=== PATIENT | male | born 1980 | race Two or more races ===

== ENCOUNTER 2024-09-25 14:17 | Emergency (ER) | payer OTHER ==
[~2024-09-25] VITALS: Ht 175.3 cm; Wt 105.0 kg
[~2024-09-25 14:17] MED LIST: ASPI-543 PO
--- NOTE | 2024-09-25 15:14 | ED.PDOC ---
Eye-HPI HPI Comments A 44 YEAR OLD MALE PRESENTS TO THE ED WITH COMPLAINT OF LEFT LOWER DENTAL PAIN AND SORE THROAT. PATIENT STATES HE HAS BEEN EXPERIENCING LEFT LOWER DENTAL PAIN OFF AND ON FOR THE PAST 3 MONTHS AND A SORE THROAT FOR THE PAST 3 WEEKS. PATIENT REPORTS HIS DENTAL PAIN HAS BEEN CAUSING HIS JAW TO HURT. PATIENT DENIES FEVER, CHILLS, SHORTNESS OF BREATH, CHEST PAIN, ABDOMINAL PAIN, NAUSEA, VOMITING, HEADACHE, OR OTHER COMPLAINTS. NO OTHER SYMPTOMS OR MODIFYING FACTORS AT THIS TIME. PATIENT IS ALERT, ORIENTED X 4, AND HAS STEADY GAIT. Chief Complaint: Jaw Pain Time Seen by MD: 14:40 Reviewed Notes: Nurses Notes, Medications, Allergies Allergies: Coded Allergies: NO KNOWN ALLERGIES (Unverified , 10/30/23) Home Meds Reported Medications Aspirin (Aspir-Low) 81 Mg Tab, 81 MG PO DAILY for 30 Days, MG 10/31/23 Information Source: Patient Mode of Arrival: Ambulatory Timing: Days Duration: Since onset, Days Prehospital treatment: None Quality: Pain Lids: Normal Conjunctiva: Normal Cornea: Normal Pupils: Normal EOM: Normal Fundus: Normal Slit lamp exam: Normal Anterior chamber: Normal Mouth Location: Left, Lower, Tooth/Teeth, Gums Mouth: Left, Lower, Premolar, Molar, Tender, Carious ENT Ear Exam: Normal, Normal, Normal Nose: Normal Sinuses: Normal Oropharynx: Normal Onset: Spontaneous Throat Exposed to: None History of: None Last Tetanus: Unknown Modifying factors: Nothing Associated signs and symptoms: Sore Throat, Tooth Pain Past Medical History PAST MEDICAL HISTORY: Anxiety Surgical History: Denies all surgeries Family History Family History: Reviewed,noncontributory to illness, No family hx of Cancer, No family hx of DM, No family hx of Heart naveen, No family hx of HTN, No family hx ofKidney naveen, No family hx of Liver naveen, No family hx of Lung naveen, No family hx of Stroke Social History Smoker: Cigarettes Alcohol: Denies ETOH Use Drugs: Denies Drug Use Lives In: Home Constitutional: denies: chills, diaphoresis, fatigue, fever, malaise, sweats, weakness, others EENTM: reports: mouth pain (LEFT LOWER DENTAL PAIN AND JAW PAIN), throat pain, throat swelling; denies: blurred vision, double vision, ear bleeding, ear discharge, ear drainage, ear pain, ear ringing, eye pain, eye redness, hearing loss, mouth swelling, nasal discharge, nose bleeding, nose congestion, nose pain, photophobia, tearing, voice changes, others Respiratory: denies: cough, hemoptysis, orthopnea, SOB at rest, shortness of br eath, SOB with excertion, stridor, wheezing, others Cardiovascular: denies: chest pain, dizzy spells, diaphoresis, Dyspnea on exertion, edema, irregular heart beat, left arm pain, lightheadedness, palpitations, PND, syncope, others Gastrointestinal: denies: abdomen distended, abdominal pain, blood streaked bowels, constipated, diarrhea, dysphagia, difficulty swallowing, hematemesis, melena, nausea, poor appetite, poor fluid intake, rectal bleeding, rectal pain, vomiting, others Genitourinary: denies: burning, dysuria, flank pain, frequency, hematuria, incontinence, penile discharge, penile sore, pain, testicle pain, testicle swelling, urgency, others Neurological: denies: dizziness, fainting, headache, left sided numbness, left sided weakness, numbness, paresthesia, pre-existing deficit, right sided numbness, right sided weakness, seizure, speech problems, tingling, tremors, weakness, others Musculoskeletal: denies: back pain, gout, joint pain, joint swelling, muscle pain, muscle stiffness, neck pain, others Integumetry: denies: bruises, change in color, change in hair/nails, dryness, laceration, lesions, lumps, rash, wounds, others Allergic/Immunocompromised: denies: Difficulty Healing, Frequent Infections, Hives, Itching, others Hematologic/Lymphatic: denies: anemia, blood clots, easy bleeding, easy bruising, swollen glands, others Endocrine: denies: excessive hunger, excessive sweating, excessive thirst, excessive urination, flushing, intolerance to cold, intolerance to heat, unexplained weight gain, unexplained weight loss, others Psychiatric: reports: anxiety; denies: bipolar disorder, depression, hopeless, panic disorder, schizophrenia, sleepless, suicidal, others All Other Systems: Reviewed and Negative Physical Exam General Appearance: No Apparent Distress, Normal, Other (ANXIOUS ) HEENT: PERRL/EOMI, Pharyngeal Erythema (TONSILLAR SWELLING, NO EXUDATES. ), TMs Normal, Other (ERYTHEMA AND SWELLING ON LEFT LOWER GUM AROUND TOOTH, NO FACIAL SWELLING. ) Neck: Full Range of Motion, Non-Tender, Normal, Normal Inspection Respiratory: Chest Non-Tender, Lungs Clear, No Accessory Muscle Use, No Respiratory Distress, Normal Breath Sounds Cardiovascular: No Edema, No JVD, No Murmur, No Gallop, Normal Peripheral Pulses, Regular Rate/Rhythm Breast Exam: Deferred Gastrointestinal: No Organomegaly, Non Tender, No Pulsatile Mass, Normal Bowel Sounds, Soft Genitalia: Deferred Pelvic: Deferred Rectal: Deferred Extremities: No calf tenderness, Normal capillary refill, Normal inspection, Normal range of motion, Non-tender, No pedal edema Musculoskeletal : Apperance: Normal Neurologic: Alert, twisting frame operator II-XII nml as Tested, No Motor Deficits, Normal Affect, Normal Mood, No Sensory Deficits Cerebellar Function: Normal Reflexes: Normal Skin: Dry, Normal Color, Warm Peripheral Pulses: 2+ carotid (R), 2+ carotid (L) Lymphatic: No Adenopathy Was a procedure done? Was a procedure done?: No EENT DIFF Eye: N/A Ear: Otitis Externa, Otitis Media, Dental, Pharyngitis, N/A Nose: N/A Mouth: Other (DENTAL PAIN, DENTAL CARIES, DENTAL ABSCESS, DENTAL INFECTION, GINGIVITIS) Sore Throat: URI, Other (ERYTHEMA TONSILLITIS ) X-Ray, Labs, Meds, VS Vital Signs Date Time Temp Pulse Resp B/P (MAP) Pulse Ox O2 Delivery O2 Flow Rate FiO2 09/25/24 15:55 95 18 97 Room Air* 0 21 09/25/24 15:55 97.5 95 18 138/95 (109) 97 97.5 09/25/24 14:55 97.5 95 18 138/95 (109) 97 Current Medications Medications (Trade) Dose Ordered Sig/Maxim Route Start Time Stop Time Status Last Admin Ceftriaxone Sodium (Rocephin) 1,000 mg ONCE ONCE IM 09/25/24 16:00 09/25/24 16:01 DC 09/25/24 16:05 Methylprednisolone Sodium Succinate (Solu Medrol) 125 mg ONCE ONCE IM 09/25/24 16:00 09/25/24 16:01 DC 09/25/24 16:04 Ondansetron HCl (Zofran Po) 4 mg ONCE ONCE PO 09/25/24 16:00 09/25/24 16:01 DC 09/25/24 16:04 X-Ray, Labs, Meds, VS Comment EXTERNAL NOTES: NONE LABS ORDERED: NONE REVIEWED AND INTERPRETED RESULTS: NONE IMAGING ORDERED: NONE INDEPENDENT HISTORIANS: NONE TREATMENT: ROCEPHIN 1GM IM AND SOLUMEDROL 125MG IM PATIENT'S CASE AND RESULTS HAVE BEEN DISCUSSED WITH THE ED ATTENDING PHYSICIAN AND THEY AGREE WITH MY PLAN OF CARE. I HAVE INSTRUCTED THE PATIENT TO FOLLOW UP WITH THEIR PCP AND DENTIST IN 1-2 DAYS. THE PATIENT FULLY UNDERSTANDS THEIR RESULTS AND ARE AWARE THEY NEED TO FOLLOW UP WITH THEIR PCP FOR FURTHER EVALUATION IF THEIR SYMPTOMS PERSIST. Time of 1ST Reevaluation: 17:00 Reevaluation 1ST: Improved Patient Education/Counseling: Diagnosis, Treatment, Need For Follow Up Family Education/Counseling: Diagnosis, Treatment, Need For Follow Up Medical Screening: No EMC Exist At This Time Departure 1 Departure Time of Disposition: 17:00 Impression: Primary Impression: Dental infection Additional Impression: Acute erythematous tonsillitis Disposition: HOME / SELF CARE / HOMELESS Condition: Stable Additional Instructions: FOLLOW-UP WITH PCP AND DENTIST IN 1 TO 2 DAYS. TAKE MEDICATIONS PRESCRIBED. RETURN TO ED FOR ANY NEW OR WORSENING SYMPTOMS. e-Prescriptions Ibuprofen (Ibuprofen) 800 Mg Tab 1 TAB PO TID, #30 TAB Prov: COY PAYAN 09/25/24 Clindamycin Hcl (Clindamycin Hcl) 300 Mg Cap 300 MG PO QID, #40 CAP Prov: COY PAYAN 09/25/24 Discharged With: Self Critical Care Note Critical Care Time?: No Stability Stability form required: No I personally scribed for COY PAYAN ([email or web address]) on 09/25/24 at 15:14. Electronically submitted by Daniel Roberts ([email or web address]). I personally scribed for COY PAYAN ([email or web address]) on 09/25/24 at 16:05. Electronically submitted by Daniel Roberts ([email or web address]). COY PAYAN Sep 25, 2024 15:14
[2024-09-25 15:55] VITALS: BP 138/95; PULSE 95; RESP 18; TEMP 97.5; O2SAT 97
[2024-09-25] MEDS: methylPREDNISolone SOD SUCC 125 MG/2 ML VL IM ONE (16:04)
[2024-09-25] MEDS: ONDANSETRON ODT 4 MG TAB PO ONE (16:04)
[2024-09-25] MEDS: cefTRIAXone SOD 1,000 MG VL IM ONE (16:05)
[2024-09-25] MEDS ORDERED: CLIN1CAP70 PO (16:41)
[2024-09-25] MEDS ORDERED: IBUP-1456 PO (16:41)
== END 2024-09-25 16:50 | disposition home or self-care (01) ==
LOC: ER 14:17
DX: J03.90 Acute tonsillitis, unspecified (principal); K04.7 Periapical abscess without sinus; F17.210 Nicotine dependence, cigarettes, uncomplicated
CPT/HCPCS: 96372; 99284; J0696; J2919; Q0162

== ENCOUNTER 2025-06-29 14:45 | Emergency (ER) | payer OTHER ==
[~2025-06-29] VITALS: Ht 175.3 cm; Wt 102.9 kg
[~2025-06-29 14:45] MED LIST changes: +CLIN1CAP70 PO; +IBUP-1456 PO
[2025-06-29 14:47] VITALS: BP 144/84; PULSE 82; RESP 17; TEMP 98.3; O2SAT 96
[2025-06-29] MEDS: SODIUM CHLORIDE 0.9% 1,000 ML IV ONE (15:45)
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
[2025-06-29 16:03] LABS: Hematocrit 44.7 % (41.0-53.0); Hemoglobin 15.5 g/dL (13.5-17.5); Mean Corpuscular Hemoglobin 31.1 pg (28.0-32.0); Mean Corpuscular Volume 89.5 fL (80.0-100.0); Nucleated Red Blood Cells % 0.1 %
[2025-06-29 16:12] LABS: Chloride 105 mmol/L (98-107); Potassium 3.8 mmol/L (3.5-5.1); Sodium 139 mmol/L (136-145)
[2025-06-29 16:13] LABS: Anion Gap 9 (5-15); Carbon Dioxide 25 mmol/L (20-31)
[2025-06-29 16:14] LABS: Calcium 9.2 mg/dL (8.7-10.4)
[2025-06-29 16:18] LABS: BUN/Creatinine Ratio 7.5 (10.0-20.0)
[2025-06-29 16:19] LABS: Blood Urea Nitrogen 8 mg/dL (9-23); Glucose 112 mg/dL (74-106)
--- NOTE | 2025-06-29 16:41 | DVH ---
CLINICAL HISTORY: dvt TECHNIQUE: Color and duplex doppler imagine of the left lower extremity veins was performed. Vessel c ompression if possible was also performed. COMPARISON: None FINDINGS: Left common femoral vein: Normal compressibility and flow. Left superficial femoral vein: Normal compressibility and flow. Left popliteal vein: Normal compressibility and flow. Proximal calf veins are normally compressible. IMPRESSION: NO SONOGRAPHIC EVIDENCE FOR DEEP VENOUS THROMBOSIS IN THE LEFT LOWER EXTREMITY VEINS.
[2025-06-29] MEDS: KETOROLAC TROMETH 60MG/2ML VIAL IM ONE (17:29)
[2025-06-29] MEDS ORDERED: DICL50TA2 PO (18:13)
== END 2025-06-29 19:40 | disposition home or self-care (01) ==
LOC: ER 14:45
DX: S86.912A Strain of unspecified muscle(s) and tendon(s) at lower leg level, left leg, initial encounter (principal); F41.9 Anxiety disorder, unspecified; F17.210 Nicotine dependence, cigarettes, uncomplicated; I10 Essential (primary) hypertension; Z86.73 Personal history of transient ischemic attack (TIA), and cerebral infarction without residual deficits; Z86.718 Personal history of other venous thrombosis and embolism; Z79.82 Long term (current) use of aspirin; X50.0XXA Overexertion from strenuous movement or load, initial encounter; Y93.89 Activity, other specified; Y92.89 Other specified places as the place of occurrence of the external cause; Y99.8 Other external cause status
CPT/HCPCS: 36415; 80048; 84484; 85025; 85379; 93971; 96360; 96361; 96372; 99285; J1885; J7030

== ENCOUNTER 2025-06-29 19:48 | Emergency (ER) | payer OTHER ==
[~2025-06-29] VITALS: Ht 175.3 cm; Wt 103.3 kg
[~2025-06-29 19:48] MED LIST changes: +DICL50TA2 PO
[2025-06-29 19:52] VITALS: BP 158/98; PULSE 60; RESP 20; TEMP 98.8; O2SAT 98
== END 2025-06-30 00:33 | disposition left against medical advice (07) ==
LOC: ER 19:48
DX: F41.9 Anxiety disorder, unspecified (principal); R06.02 Shortness of breath; Z53.21 Procedure and treatment not carried out due to patient leaving prior to being seen by health care provider